=== PATIENT | female | born 1970 | race Caucasian/White ===

== ENCOUNTER 2020-10-11 22:53 | Inpatient (IN) | payer SELFPAY ==
[~2020-10-11] VITALS: Ht 157.5 cm; Wt 49.5 kg
--- NOTE | 2020-10-12 01:08 | NUR ---
The patient, IDA GUTIERREZ, 49 y/o, F admitted by CARL HURST MD, was given written information regarding hospital policies, unit procedures and contact persons. Valuables were checked and left with pt.
[2020-10-12 01:15] VITALS: BP 102/69
--- NOTE | 2020-10-12 01:35 | NUR ---
At [address] Lang, notified of pts BS 514, orders received to give 10 units SQ per current sliding scale order verification.
[2020-10-12] MEDS ORDERED: DEXTROSE 50% 25 GM / 50ML DISP.SYRIN. IV PRN (01:45)
[2020-10-12] MEDS: INSULIN LISPRO 300 UNITS/3 ML VIAL. SQ SCH ×2 (02:37→04:11)
[2020-10-12 06:00] VITALS: BP 100/62
--- NOTE | 2020-10-12 06:20 | NUR ---
At 0612-Dr LANG called notified of pts status and that pts BS still high at 564 this am. V/U stated. orders received. Dr Lang stated to put her on accuchecks AC&HS with scheduled insulin with meals and Lantus at HS, see orders. BMP ordered for this am.
[2020-10-12] MEDS ORDERED: INSULIN LISPRO 300 UNITS/3 ML VIAL. SQ SCH ×2 (07:30→11:30)
[2020-10-12 07:50] LABS: CALCIUM 8.4 mg/dL (8.5-10.1); CREATININE 0.7 mg/dL (0.6-1.0); GFR 89.3; POTASSIUM 4.6 mmol/L (3.5-5.1)
[2020-10-12] MEDS: IV NORMAL SALINE 1,000ML 1,000 ML IV SCH ×2 (08:41→15:25)
--- NOTE | 2020-10-12 10:21 | NUR ---
Patient is oriented x3, drowsy. Denies pain. Pt newly diagnosed diabetic. Providing patient with education. SR on tele. TM.
--- NOTE | 2020-10-12 10:47 | HP ---
ATTENDING PHYSICIAN: Dr. Lang. CHIEF COMPLAINT: Weakness and elevated blood sugar. HISTORY OF PRESENT ILLNESS: The patient is a 49-year-old female with new-onset de jack diabetes. Many years ago, she had gestational diabetes. Since her delivery, she has not had any problems. She has also not seen a doctor. When she presented to the ED at [place], [place], she was found to have a blood sugar over 700. She was not acidotic and bicarbonate was 21 and the anion gap of 8. Because of her elevated blood sugars, requiring insulin, if they do not have a bed available, Dr. Evans called me from the ER and requested that I admit her here. We were happy to accommodate. By the time I saw her, she was feeling better, on IV hydration. Sugars have down in the 400 and 500 range, but they are still elevated. PAST MEDICAL HISTORY: Significant for longstanding history of polysubstance abuse. Whether or not she is still using recreational drugs, remains to be seen. She denies any alcohol or tobacco use. She is not on any medications. She is currently unemployed. She has had underlying depression and anxiety in the past. FAMILY HISTORY: Both mom and dad had diabetes and getting more history, she became very teary eyed. She was scared that she was going to , I tried to reassure her. ALLERGIES: She has no known drug allergies. SOCIAL HISTORY: As noted. REVIEW OF SYSTEMS: Significant for polyuria, polydipsia, some weight loss. She says about 10 years ago, she weighed up to 300 pounds. She is down to 120 pounds. A year ago, she weighed 128 pounds. She has had polyuria, some blurred vision. All other systems reviewed and determined to be negative. PHYSICAL EXAMINATION: GENERAL: When I saw her, this is a pleasant, middle-aged female. INITIAL VITAL SIGNS: Showed a blood pressure of 102/69 mmHg, pulse is 87 and regular. She is afebrile. Oxygen saturation 97% on room air. HEENT: Head is without trauma. Pupils are reactive. Sclerae nonicteric. Oropharynx is clear. NECK: Supple, no bruits identified. LUNGS: Clear. CARDIOVASCULAR: Showed regular heart tones. No gallops. ABDOMEN: Soft. EXTREMITIES: Without edema. NEUROLOGIC FINDINGS: Focally intact. Very flat affect. PERTINENT LABORATORY STUDIES: Repeat laboratory this morning, the blood sugar is 505 mg/dL, the creatinine is 0.7 mg%, anion gap is 6. The sodium is low due to pseudohyponatremia, corrected, it is within range. I did not order a hemoglobin A1c at this time. It will not change our management. ASSESSMENT: 1. A 49-year-old female with uncontrolled diabetes. 2. History of gestational diabetes. 3. Type 2 diabetes, new onset. 4. Dehydration. 5. Underlying depression with anxiety. 6. History of substance abuse in the past. PLAN: 1. Admit to the inpatient unit. 2. Diabetic diet. 3. I shall order initially every 2 hours Accu-Cheks with sliding scale. Eventually, I will put her on a q.i.d. regimen with scheduled regular insulin before each meal and Lantus at bedtime. 4. Serial chemistries. 5. Diabetic diet as tolerated. SUZANNE/BRANDON DR: [place] TID: [id number]
[2020-10-12 11:17] VITALS: BP 132/82
[2020-10-12] MEDS ORDERED: INSULIN REGULAR 100 UNIT/ML 3ML VIAL. SQ ONE (13:45)
[2020-10-12] MEDS: INSULIN REGULAR VIAL 100 UNIT in IV NORMAL SALINE 100ML 100 ML IV PRN ×2 (14:16→19:20)
[2020-10-12 15:26] VITALS: BP 119/79
[2020-10-12 15:48] LABS: POTASSIUM ISTAT 4.4 mmol/L (3.5-5.0)
[2020-10-12 15:49] LABS: HEMOGLOBIN ISTAT 13.3 gm/dL
[2020-10-12 18:55] VITALS: BP 110/72
[2020-10-12] MEDS ORDERED: INSULIN GLARGINE SYRINGE. SQ SCH (21:00)
--- NOTE | 2020-10-12 22:58 | NUR ---
Pt boyfriend called expressing concern about pt condition. He had many questions about how to maintain blood glucose levels at home with nutrition. He also had questions about the medications she would be sent home with. He stated pt,"is very sleepy most of the day and has very little motivation." According to pt boyfriend, she does not work, have disability or medicaid and has not seen a physician in many years. He is not convinced she will administer her own medications and does not feel comfortable giving her shots. This nurse assured him we would be teaching and evaluating her ability to self administer prior to her leaving and that when he visits we can discuss this further with him as well.
[2020-10-12 23:04] VITALS: BP 129/74
--- NOTE | 2020-10-12 23:24 | NUR ---
Pt latest blood glucose 187 mg/dL. Dr. Lang consulted for further orders. Continuing plan of care with no new orders.
--- NOTE | 2020-10-13 01:31 | NUR ---
Pt expressing she is very hungry. Pt given pudding, cereal and milk and crackers and peanut butter. Will continue to monitor.
[2020-10-13 05:28] VITALS: BP 131/80
[2020-10-13] MEDS: INSULIN LISPRO 300 UNITS/3 ML VIAL. SQ SCH ×3 (08:09→17:10)
[2020-10-13 12:45] VITALS: BP 130/68
[2020-10-13 15:50] VITALS: BP 115/71
[2020-10-13 19:25] VITALS: BP 121/76
--- NOTE | 2020-10-13 19:50 | PN ---
DATE: 10/13/2020 ATTENDING PHYSICIAN: Dr. Lang. SUBJECTIVE: The patient is alert. She has no new complaints. She feels better with IV hydration. OBJECTIVE FINDINGS: Blood sugars are now in the low 100s. She had been on an insulin drip for the last 24 hours with marked improvement. Her chemistry panel is pending. Clinically, she appears euvolemic. OBJECTIVE FINDINGS: VITAL SIGNS: Blood pressure this morning is 131/80 mmHg, pulse is 90 and regular, temperature 98.6 degrees Fahrenheit. Her oxygen saturations are 96% on room air. HEENT: Head is without trauma. Pupils are reactive. Sclerae nonicteric. Oropharynx is clear. Mucous membranes are dry. NECK: Supple, no bruits. LUNGS: Good breath sounds. CARDIOVASCULAR: Showed regular heart tones. No gallops. ABDOMEN: Soft. EXTREMITIES: Without edema. NEUROLOGIC: Functionally flat affect. Speech is fluent. PERTINENT LABORATORY STUDIES: The last five Accu-Cheks at 0300 hours this morning is 194, 147, 134, 95 and 152 mg/dL respectively. ASSESSMENT: 1. A 49-year-old female with new onset uncontrolled diabetes. Admission blood sugar greater than 700. 2. History of gestational diabetes. 3. Dehydration, rehydrated. 4. Underlying depression with anxiety. 5. History of substance abuse in the past. PLAN: 1. Discontinue glucose stabilizer protocol. 2. Scheduled q.i.d. regimen with 20 units of regular insulin before each meal and a dose of Lantus at night. 3. Accu-Cheks q.i.d. 4. Diabetic education. 5. Tentative discharge plans for tomorrow. HOLGER DR: SUZANNE/jermaine TID: [id number]
[2020-10-13] MEDS ORDERED: INSULIN GLARGINE SYRINGE. SQ SCH (21:00)
[2020-10-13] MEDS ORDERED: ACETAMINOPHEN 500 MG TABLET PO PRN (21:00)
[2020-10-13 22:50] VITALS: BP 125/74
[2020-10-14 06:08] VITALS: BP 162/83
[2020-10-14] MEDS: INSULIN LISPRO 300 UNITS/3 ML VIAL. SQ SCH ×2 (07:58→12:07)
[2020-10-14 10:13] VITALS: BP 127/69
--- NOTE | 2020-10-14 12:51 | NUR ---
PATIENT IS DISCHARGED HOME, DISCHARGE INSTRUCTION, PRESCRIPTIONS AND DIABETES EDUCATION REVIEWED, PATIENT VERBALIZED UNDERSTANDING. PATIENT LEFT ROOM VIA W/C ACCOMP BY HER BOYFRIEND. PATIENT TAKEN HOME VIA PERSONAL VEHICLE.
--- NOTE | 2020-10-14 15:03 | DS ---
DATE OF DISCHARGE: 10/14/2020 ATTENDING PHYSICIAN: Dr. Lang. FINAL DISCHARGE DIAGNOSES: 1. Uncontrolled diabetes, new onset. 2. History of gestational diabetes. 3. Dehydration, rehydrated. 4. Underlying depression with anxiety. 5. History of substance abuse. HISTORY AND PHYSICAL: The patient is a 49-year-old female who was actually transferred here from [facility] in [place], [place]. They did not have an ICU bed. She had elevated blood sugars over 700. She was hyperosmolar without any ketosis. Her anion gap was only 8. She was dehydrated. PHYSICAL EXAMINATION: Please see the dictated note. PERTINENT LABORATORY AND X-RAY STUDIES: Admission blood sugar was over 700. Subsequently, she had blood work done, which showed blood sugars still in the 500s. Insulin drip was initiated. It was down to 95, 152, and 158 mg/dL. Her chemistry panel showed admission sodium 125, corrected for high blood sugar of 653, this is normal. Potassium is 4.4 mEq. Creatinine was 0.7 mg percent. Hemoglobin was 13.3 grams. COURSE IN THE HOSPITAL: The patient was admitted. She was started on insulin drip per glucose stabilizer protocol. Sugars came down nicely. We gave her hydration for 2 days. Eventually, she was switched to a q.i.d. regimen of regular insulin and Lantus at bedtime. Sugars were in the mid 100s. She felt much better. At this time, I wrote prescriptions for Lantus insulin 25 units at bedtime and regular insulin 25 units t.i.d. before each meal, glucometer along with diabetic instructions and dietitian recommendations. She was discharged then from our hospital in stable condition with recommendation for followup visit, primary care physician establishment, and also daily insulin regimen. I also gave her copies of my H and P as well as the lab work from this hospitalization. She was discharged in stable condition with explicit drug and followup care. Total discharge time spent was 41 minutes. SUZANNE/WENDI JOHNSON: SUZANNE/jermaine TID: [id number]
== END 2020-10-14 12:50 | disposition home or self-care (01) | DRG 639 ==
LOC: 1 SOUTH 22:53
PROVIDERS: ADMIT Hospitalist; ATTEND Hospitalist
DX: E11.65 Type 2 diabetes mellitus with hyperglycemia (principal); E86.0 Dehydration; F41.8 Other specified anxiety disorders; Z79.4 Long term (current) use of insulin; Z83.3 Family history of diabetes mellitus; Z86.32 Personal history of gestational diabetes; F32.9 Major depressive disorder, single episode, unspecified; F41.9 Anxiety disorder, unspecified; Z56.0 Unemployment, unspecified
CPT/HCPCS: 36415; 80047; 80048; 82947; J1815; J7030